=== PATIENT | male | born 1970 | race African-American/Black ===

== ENCOUNTER 2017-05-06 15:28 | Inpatient (IN) | payer OTHER ==
[2017-05-06 19:32] VITALS: BMI 20.9
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
[2017-05-06] MEDS ORDERED: MAGNESIUM HYDROX 2400MG/30ML ORAL SUSPENSION 30 ML CUP PO PRN (21:15)
[2017-05-06] MEDS ORDERED: MAG HYDROX/AL HYDROX/SIMETH 30 ML UNIT-DOSE CUP PO PRN (21:15)
[2017-05-06] MEDS ORDERED: hydrOXYzine PAMOATE 50 MG CAPSULE (FP) PO PRN (21:15)
[2017-05-06] MEDS ORDERED: MENTHOL/PHENOL 1 EACH UD MM PRN (21:15)
[2017-05-06] MEDS ORDERED: LOPERAMIDE HCL 2 MG CAPSULE PO PRN (21:15)
[2017-05-06] MEDS ORDERED: P-EPHED 60MG/TRIPROLIDI 2.5MG TABLET PO PRN (21:15)
[2017-05-06] MEDS ORDERED: ACETAMINOPHEN 325 MG TABLET (FP) PO PRN (21:15)
[2017-05-06] MEDS ORDERED: MAGNESIUM CITRATE 300 ML BOTTLE PO PRN (21:15)
[2017-05-06] MEDS ORDERED: guaiFENesin/D-METHORPHAN HB 10 ML UNIT-DOSE CUPS PO PRN (21:15)
[2017-05-06 22:32] LABS: URINE APPEARANCE CLEAR; URINE BILIRUBIN NEGATIVE (NEGATIVE); URINE BLOOD NEGATIVE (NEGATIVE); URINE COLOR DKYELLOW; URINE GLUCOSE (UA) NEGATIVE (NEGATIVE); URINE KETONE NEGATIVE (NEGATIVE); URINE LEUK ESTERASE NEGATIVE (NEGATIVE); URINE NITRITE NEGATIVE (NEGATIVE); URINE UROBILINOGEN NEGATIVE mg/dL (0.2-1.0)
[2017-05-06 22:44] LABS: URINE PROTEIN 1+ (NEGATIVE)
[2017-05-06] MEDS ORDERED: TUBERCULIN PPD 5 TU/0.1ML VIAL ID ONE (23:10)
[2017-05-06] MEDS: THIAMINE HCL 100 MG TABLET (FP) PO SCH (23:18)
[2017-05-06 23:57] LABS: CALCIUM OXALATE CRYSTALS RARE /hpf (NONE SEEN); URINE BACTERIA RARE /hpf (NONE SEEN); URINE HYALINE CAST 6 /lpf; URINE MUCUS MANY; URINE RBC 6 /hpf (0-3); URINE WBC 6 /hpf (3-5)
[2017-05-07] MEDS: PRENATAL VITAMINS W/ FOLIC ACID TABLET (FP) PO SCH (09:41)
[2017-05-07] MEDS: PANTOPRAZOLE 20 MG TABLET (FP) PO SCH (10:19)
[2017-05-07 10:56] LABS: ALBUMIN 2.9 g/dl (3.4-5.0); ANION GAP 7 (8-16); CALCIUM 8.2 mg/dL (8.5-10.1); CO2 24 mmol/L (21-32); CREATININE 0.9 mg/dL (0.7-1.3); GLUCOSE,RANDOM 71 mg/dL (74-106); SGOT/AST 17 U/L (15-37); SGPT/ALT 16 U/L (12-78)
[2017-05-07 10:59] LABS: ALK PHOS 84 U/L (45-117); BILIRUBIN,TOTAL 0.3 mg/dL (0.2-1.0); TOT PROT 7.6 g/dl (6.4-8.2)
[2017-05-07 11:09] LABS: MCH 27.9 pg (25.7-33.7); MCHC 32.6 g/dl (32.0-35.9); MEAN CELL VOLUME 85.4 fl (80-96); MEAN PLT VOLUME 9.6 fl (7.5-11.1); PLATELET COUNT 165 K/MM3 (134-434); RDW 14.1 % (11.9-15.9)
[2017-05-07 11:41] LABS: WHITE BLOOD COUNT 1.3 K/mm3 (4.0-10.0)
[2017-05-07] MEDS ORDERED: SULFAMETHOXAZOLE/TRIMETHOPRIM 800MG/160MG D.S. TABLET PO ONE (14:18)
[2017-05-07] MEDS ORDERED: PATIENT'S OWN MEDICATION (NON-FORMULARY) (Efavirenz/Emtricitab/Tenofovir 1 TAB) PO SCH (14:30)
[2017-05-07] MEDS: EMTRICITABINE 200MG/TENOFOVIR 300MG PO SCH (14:57)
[2017-05-07] MEDS: SULFAMETHOXAZOLE/TRIMETHOPRIM 800MG/160MG D.S. TABLET PO SCH (14:57)
[2017-05-07] MEDS: EFAVIRENZ 600 MG TABLET PO SCH (14:57)
[2017-05-07 17:26] LABS: PLATELET ESTIMATE ADEQUATE (NORMAL)
[2017-05-07] MEDS: THIAMINE HCL 100 MG TABLET (FP) PO SCH (21:28)
[2017-05-08] MEDS: EFAVIRENZ 600 MG TABLET PO SCH (09:37)
[2017-05-08] MEDS: SULFAMETHOXAZOLE/TRIMETHOPRIM 800MG/160MG D.S. TABLET PO SCH (09:37)
[2017-05-08] MEDS: PANTOPRAZOLE 20 MG TABLET (FP) PO SCH (09:37)
[2017-05-08] MEDS: EMTRICITABINE 200MG/TENOFOVIR 300MG PO SCH (09:37)
[2017-05-08] MEDS: PRENATAL VITAMINS W/ FOLIC ACID TABLET (FP) PO SCH (09:37)
[2017-05-08] MEDS: THIAMINE HCL 100 MG TABLET (FP) PO SCH (21:23)
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
[2017-05-09] MEDS: SULFAMETHOXAZOLE/TRIMETHOPRIM 800MG/160MG D.S. TABLET PO SCH (09:31)
[2017-05-09] MEDS: PRENATAL VITAMINS W/ FOLIC ACID TABLET (FP) PO SCH (09:31)
[2017-05-09] MEDS: PANTOPRAZOLE 20 MG TABLET (FP) PO SCH (09:31)
[2017-05-09] MEDS: EMTRICITABINE 200MG/TENOFOVIR 300MG PO SCH (09:32)
[2017-05-09] MEDS: EFAVIRENZ 600 MG TABLET PO SCH (09:32)
--- NOTE | 2017-05-09 11:31 | EKG ---
Test Reason : Blood Pressure : / mmHG Vent. Rate : 078 BPM Atrial Rate : 078 BPM P-R Int : 134 ms QRS Dur : 090 ms QT Int : 356 ms P-R-T Axes : 073 062 058 degrees QTc Int : 405 ms NORMAL SINUS RHYTHM MINIMAL VOLTAGE CRITERIA FOR LVH, MAY BE NORMAL VARIANT SEPTAL INFARCT , AGE UNDETERMINED ABNORMAL ECG NO PREVIOUS ECGS AVAILABLE Confirmed by BETSY SENA, MARCO ANTONIO ([id number]) on 05/09/2017 11:31:42 AM Referred By: Lilliam TALBOT Confirmed By:MARCO ANTONIO MEYER MD
[2017-05-09] MEDS ORDERED: AMMONIUM LACTATE 12% LOTION 225 GM BOTTLE TP PRN (20:29)
[2017-05-09] MEDS: THIAMINE HCL 100 MG TABLET (FP) PO SCH (21:23)
[2017-05-10] MEDS: PANTOPRAZOLE 20 MG TABLET (FP) PO SCH (09:32)
[2017-05-10] MEDS: EFAVIRENZ 600 MG TABLET PO SCH (09:32)
[2017-05-10] MEDS: SULFAMETHOXAZOLE/TRIMETHOPRIM 800MG/160MG D.S. TABLET PO SCH (09:32)
[2017-05-10] MEDS: EMTRICITABINE 200MG/TENOFOVIR 300MG PO SCH (09:32)
[2017-05-10] MEDS: PRENATAL VITAMINS W/ FOLIC ACID TABLET (FP) PO SCH (09:32)
[2017-05-10] MEDS: THIAMINE HCL 100 MG TABLET (FP) PO SCH (21:52)
[2017-05-10] MEDS: diphenhydrAMINE HCL 50 MG CAPSULE PO PRN (21:53)
[2017-05-11] MEDS: SULFAMETHOXAZOLE/TRIMETHOPRIM 800MG/160MG D.S. TABLET PO SCH (09:50)
[2017-05-11] MEDS: PANTOPRAZOLE 20 MG TABLET (FP) PO SCH (09:50)
[2017-05-11] MEDS: PRENATAL VITAMINS W/ FOLIC ACID TABLET (FP) PO SCH (09:51)
[2017-05-11] MEDS: EMTRICITABINE 200MG/TENOFOVIR 300MG PO SCH (10:23)
[2017-05-11] MEDS: EFAVIRENZ 600 MG TABLET PO SCH (10:24)
[2017-05-11] MEDS: THIAMINE HCL 100 MG TABLET (FP) PO SCH (21:36)
[2017-05-12] MEDS: PRENATAL VITAMINS W/ FOLIC ACID TABLET (FP) PO SCH (09:58)
[2017-05-12] MEDS: EMTRICITABINE 200MG/TENOFOVIR 300MG PO SCH (09:59)
[2017-05-12] MEDS: SULFAMETHOXAZOLE/TRIMETHOPRIM 800MG/160MG D.S. TABLET PO SCH (09:59)
[2017-05-12] MEDS: PANTOPRAZOLE 20 MG TABLET (FP) PO SCH (09:59)
[2017-05-12] MEDS: EFAVIRENZ 600 MG TABLET PO SCH (09:59)
[2017-05-12] MEDS: diphenhydrAMINE HCL 50 MG CAPSULE PO PRN (21:14)
[2017-05-12] MEDS: THIAMINE HCL 100 MG TABLET (FP) PO SCH (21:14)
[2017-05-13] MEDS: EMTRICITABINE 200MG/TENOFOVIR 300MG PO SCH (09:59)
[2017-05-13] MEDS: PRENATAL VITAMINS W/ FOLIC ACID TABLET (FP) PO SCH (09:59)
[2017-05-13] MEDS: PANTOPRAZOLE 20 MG TABLET (FP) PO SCH (09:59)
[2017-05-13] MEDS: SULFAMETHOXAZOLE/TRIMETHOPRIM 800MG/160MG D.S. TABLET PO SCH (09:59)
[2017-05-13] MEDS: EFAVIRENZ 600 MG TABLET PO SCH (10:00)
[2017-05-13] MEDS: THIAMINE HCL 100 MG TABLET (FP) PO SCH (22:09)
[2017-05-14] MEDS: PANTOPRAZOLE 20 MG TABLET (FP) PO SCH (09:59)
[2017-05-14] MEDS: PRENATAL VITAMINS W/ FOLIC ACID TABLET (FP) PO SCH (09:59)
[2017-05-14] MEDS: EFAVIRENZ 600 MG TABLET PO SCH (10:00)
[2017-05-14] MEDS: SULFAMETHOXAZOLE/TRIMETHOPRIM 800MG/160MG D.S. TABLET PO SCH (10:00)
[2017-05-14] MEDS: EMTRICITABINE 200MG/TENOFOVIR 300MG PO SCH (10:00)
[2017-05-14] MEDS: diphenhydrAMINE HCL 50 MG CAPSULE PO PRN (21:15)
[2017-05-14] MEDS: THIAMINE HCL 100 MG TABLET (FP) PO SCH (21:15)
[2017-05-14] MEDS: IBUPROFEN 400 MG TABLET (FP) PO PRN (21:16)
[2017-05-15] MEDS: IBUPROFEN 400 MG TABLET (FP) PO PRN (08:49)
[2017-05-15] MEDS: EMTRICITABINE 200MG/TENOFOVIR 300MG PO SCH (09:43)
[2017-05-15] MEDS: SULFAMETHOXAZOLE/TRIMETHOPRIM 800MG/160MG D.S. TABLET PO SCH (09:43)
[2017-05-15] MEDS: EFAVIRENZ 600 MG TABLET PO SCH (09:43)
[2017-05-15] MEDS: PRENATAL VITAMINS W/ FOLIC ACID TABLET (FP) PO SCH (09:43)
[2017-05-15] MEDS: PANTOPRAZOLE 20 MG TABLET (FP) PO SCH (09:43)
[2017-05-15] MEDS: THIAMINE HCL 100 MG TABLET (FP) PO SCH (21:59)
[2017-05-15] MEDS: diphenhydrAMINE HCL 50 MG CAPSULE PO PRN (21:59)
[2017-05-16] MEDS ORDERED: PT OWN MED DRAWER 7, Y5N ONE ×2 (08:48→14:06)
[2017-05-16] MEDS: EFAVIRENZ 600 MG TABLET PO SCH (09:56)
[2017-05-16] MEDS: EMTRICITABINE 200MG/TENOFOVIR 300MG PO SCH (09:56)
[2017-05-16] MEDS: PRENATAL VITAMINS W/ FOLIC ACID TABLET (FP) PO SCH (09:56)
[2017-05-16] MEDS: SULFAMETHOXAZOLE/TRIMETHOPRIM 800MG/160MG D.S. TABLET PO SCH (09:56)
[2017-05-16] MEDS: PANTOPRAZOLE 20 MG TABLET (FP) PO SCH (09:56)
--- NOTE | 2017-05-16 12:42 | PN ---
YUE Progress Note Note: patient has pain in the left foot,under the care of front desk monitor before has been seen by front desk monitor in the past advise to see front desk monitor after discharge xray left foot ,
[2017-05-16] MEDS: THIAMINE HCL 100 MG TABLET (FP) PO SCH (21:31)
[2017-05-16] MEDS: diphenhydrAMINE HCL 50 MG CAPSULE PO PRN (21:31)
[2017-05-16] MEDS: IBUPROFEN 400 MG TABLET (FP) PO PRN (21:32)
[2017-05-17] MEDS ORDERED: PT OWN MED DRAWER 7, Y5N ONE ×2 (10:10→10:13)
[2017-05-17] MEDS: EMTRICITABINE 200MG/TENOFOVIR 300MG PO SCH (10:10)
[2017-05-17] MEDS: PRENATAL VITAMINS W/ FOLIC ACID TABLET (FP) PO SCH (10:11)
[2017-05-17] MEDS: PANTOPRAZOLE 20 MG TABLET (FP) PO SCH (10:11)
[2017-05-17] MEDS: EFAVIRENZ 600 MG TABLET PO SCH (10:11)
[2017-05-17] MEDS: SULFAMETHOXAZOLE/TRIMETHOPRIM 800MG/160MG D.S. TABLET PO SCH (10:11)
[2017-05-17] MEDS: THIAMINE HCL 100 MG TABLET (FP) PO SCH (21:11)
[2017-05-17] MEDS: diphenhydrAMINE HCL 50 MG CAPSULE PO PRN (21:11)
[2017-05-18] MEDS: PANTOPRAZOLE 20 MG TABLET (FP) PO SCH (10:10)
[2017-05-18] MEDS: EMTRICITABINE 200MG/TENOFOVIR 300MG PO SCH (10:10)
[2017-05-18] MEDS: PRENATAL VITAMINS W/ FOLIC ACID TABLET (FP) PO SCH (10:10)
[2017-05-18] MEDS: SULFAMETHOXAZOLE/TRIMETHOPRIM 800MG/160MG D.S. TABLET PO SCH (10:10)
[2017-05-18] MEDS: EFAVIRENZ 600 MG TABLET PO SCH (10:10)
[2017-05-18] MEDS ORDERED: PT OWN MED DRAWER 7, Y5N ONE (10:11)
[2017-05-18] MEDS ORDERED: AZITHROMYCIN 600 MG TABLET PO ONE (12:05)
--- NOTE | 2017-05-18 14:32 | PN ---
Psychiatric Progress Note Vital Signs: Vital Signs Period Temp Pulse Resp BP Sys/Kelly Pulse Ox Last 24 Hr 98 F 80 18-18 126/70 Current Medications: Active Medications Generic Name Dose Route Start Last Admin Trade Name Freq PRN Reason Stop Dose Admin Acetaminophen 650 mg 05/06/17 21:15 05/14/17 10:01 Tylenol - PO 650 mg Q4H PRN Administration PAIN Al Hydroxide/Mg Hydroxide 30 ml 05/06/17 21:15 Mylanta Oral Suspension - PO Q6H PRN DYSPEPSIA Diphenhydramine HCl 50 mg 05/06/17 21:15 05/17/17 21:11 Benadryl - PO 50 mg HSMR1 PRN Administration INSOMNIA Efavirenz 600 mg 05/07/17 14:30 05/18/17 10:10 Sustiva - PO 600 mg DAILY JORGE Administration Emtricitabine/Tenofovir 1 tab 05/07/17 14:30 05/18/17 10:10 Truvada PO 1 tab DAILY JORGE Administration Eucalyptus/Menthol/Phenol/Sorbitol 1 each 05/06/17 21:15 Cepastat Lozenge - MM Q4H PRN SORE THROAT Guaifenesin 10 ml 05/06/17 21:15 Robitussin Dm - PO Q6H PRN COUGH Hydroxyzine Pamoate 50 mg 05/06/17 21:15 Vistaril - PO Q4H PRN AGITATION Ibuprofen 600 mg 05/18/17 12:07 Motrin - PO Q6H PRN PAIN Loperamide HCl 4 mg 05/06/17 21:15 Imodium - PO Q6H PRN DIARRHEA Magnesium Citrate 300 ml 05/06/17 21:15 Citroma - PO Q48H PRN CONSTIPATION Magnesium Hydroxide 30 ml 05/06/17 21:15 Milk Of Magnesia - PO DAILY PRN CONSTIPATION Pantoprazole Sodium 20 mg 05/07/17 10:00 05/18/17 10:10 Protonix - PO 20 mg DAILY JORGE Administration Multivit/Folic Acid/Iron 1 tab 05/07/17 10:00 05/18/17 10:10 Vitamins (Sjr) - PO 1 tab DAILY JORGE Administration Pseudoephedrine/Triprolidine 1 combo 05/06/17 21:15 Actifed - PO TID PRN NASAL CONGESTION Thiamine HCl 100 mg 05/06/17 22:00 08/01/17 21:11 Vitamin B1 - PO 100 mg HS JORGE Administration Trimethoprim/Sulfamethoxazole 1 each 05/07/17 14:30 05/18/17 10:10 Bactrim Ds - PO 1 each DAILY JORGE Administration Mental Status Exam - Mental Status Exam Alert and Oriented to: Time Insight/Judgement: Fair Psychiatric Treatment Plan - Problem List (1) Alcohol dependence Current Visit: No (2) Nicotine dependence Current Visit: No Comment: Seroquel 100mg po qhs (3) Acquired immune deficiency syndrome (AIDS) Current Visit: Yes Comment: PT. PRESCRIBED GENVOYA BUT REPORTS HE STOPPED TAKING THE MEDICATION 1 MONTH AGO. HE DID NOT BRING ANY REFILLS WITH HIM. HE WAS MADE AWARE THAT GENOVYA IS NON-FORMULARY AND HE WAS EXPECTED TO BRING THEM WITH HIM ON ADMISSION. HE WAS ADVISED TO OBTAIN A REFILL AND COME BACK THE NEXT DAY WITH HIS MEDICATION BUT HE REFUSED AND INSISTED TO WANTED TO BE ADMITTED IMMEDIATLEY. HE WAS EDUCATED ON THE IMPORTANCE OF ADHERING TO ANTIRETROVIRAL MEDICATION; PT. VERBALIZED UNDERSTANDING. (4) GERD (gastroesophageal reflux disease) Current Visit: Yes
[2017-05-18] MEDS: THIAMINE HCL 100 MG TABLET (FP) PO SCH (21:20)
[2017-05-18] MEDS: diphenhydrAMINE HCL 50 MG CAPSULE PO PRN (21:20)
[2017-05-18] MEDS: IBUPROFEN 600 MG TABLET (FP) PO PRN (21:21)
[2017-05-19] MEDS: PRENATAL VITAMINS W/ FOLIC ACID TABLET (FP) PO SCH (10:04)
[2017-05-19] MEDS: PANTOPRAZOLE 20 MG TABLET (FP) PO SCH (10:04)
[2017-05-19] MEDS: SULFAMETHOXAZOLE/TRIMETHOPRIM 800MG/160MG D.S. TABLET PO SCH (10:04)
[2017-05-19] MEDS: EMTRICITABINE 200MG/TENOFOVIR 300MG PO SCH (10:06)
--- NOTE | 2017-05-19 10:22 | PN ---
Psychiatric Progress Note Vital Signs: Vital Signs Period Temp Pulse Resp BP Sys/Kelly Pulse Ox Last 24 Hr 97.6 F 77 18-18 120/72 Date of Session: 05/19/17 Chief Complaint:: Discharge Note HPI: Patient addressing Alcohol Dependence comorbid with Nicotine Dependence ROS: AIDS, GERD Current Medications: Active Medications Generic Name Dose Route Start Last Admin Trade Name Freq PRN Reason Stop Dose Admin Acetaminophen 650 mg 05/06/17 21:15 05/14/17 10:01 Tylenol - PO 650 mg Q4H PRN Administration PAIN Al Hydroxide/Mg Hydroxide 30 ml 05/06/17 21:15 Mylanta Oral Suspension - PO Q6H PRN DYSPEPSIA Diphenhydramine HCl 50 mg 05/06/17 21:15 05/18/17 21:20 Benadryl - PO 50 mg HSMR1 PRN Administration INSOMNIA Efavirenz 600 mg 05/07/17 14:30 05/18/17 10:10 Sustiva - PO 600 mg DAILY JORGE Administration Emtricitabine/Tenofovir 1 tab 05/07/17 14:30 05/19/17 10:06 Truvada PO 1 tab DAILY JORGE Administration Eucalyptus/Menthol/Phenol/Sorbitol 1 each 05/06/17 21:15 Cepastat Lozenge - MM Q4H PRN SORE THROAT Guaifenesin 10 ml 05/06/17 21:15 Robitussin Dm - PO Q6H PRN COUGH Hydroxyzine Pamoate 50 mg 05/06/17 21:15 Vistaril - PO Q4H PRN AGITATION Ibuprofen 600 mg 05/18/17 12:07 05/18/17 21:21 Motrin - PO 600 mg Q6H PRN Administration PAIN Loperamide HCl 4 mg 05/06/17 21:15 Imodium - PO Q6H PRN DIARRHEA Magnesium Citrate 300 ml 05/06/17 21:15 Citroma - PO Q48H PRN CONSTIPATION Magnesium Hydroxide 30 ml 05/06/17 21:15 Milk Of Magnesia - PO DAILY PRN CONSTIPATION Pantoprazole Sodium 20 mg 05/07/17 10:00 05/19/17 10:04 Protonix - PO 20 mg DAILY JORGE Administration Multivit/Folic Acid/Iron 1 tab 05/07/17 10:00 05/19/17 10:04 Vitamins (Sjr) - PO 1 tab DAILY JORGE Administration Pseudoephedrine/Triprolidine 1 combo 05/06/17 21:15 Actifed - PO TID PRN NASAL CONGESTION Thiamine HCl 100 mg 05/06/17 22:00 05/18/17 21:20 Vitamin B1 - PO 100 mg HS JORGE Administration Trimethoprim/Sulfamethoxazole 1 each 05/07/17 14:30 05/19/17 10:04 Bactrim Ds - PO 1 each DAILY JORGE Administration Current Side Effect: No Lab tests ordered: Yes Lab tests reviewed: Yes Provider note:: Patient will complete this program on 05/20/17. He has met his treatment goals and will continue to address his issues in outpatient treatment at [facility]. 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 He is stable for discharge on 05/20/17 Total face to face time:: 35 Mental Status Exam - Mental Status Exam Alert and Oriented to: Time, Place, Person Cognitive Function: Fair Patient Appearance: Well Groomed Mood: Hopeful, Euthymic Affect: Appropriate Patient Behavior: Cooperative Speech Pattern: Clear Voice Loudness: Normal Thought Process: Intact, Goal Oriented Thought Disorder: Not Present Hallucinations: Denies Suicidal Ideation: Denies Homicidal Ideation: Denies Insight/Judgement: Fair Sleep: Fair Appetite: Good Muscle strength/Tone: Normal Gait/Station: Normal Psychiatric Treatment Plan - Problem List (1) Alcohol dependence Current Visit: No (2) Nicotine dependence Current Visit: No Comment: Seroquel 100mg po qhs (3) Acquired immune deficiency syndrome (AIDS) Current Visit: Yes Comment: PT. PRESCRIBED GENVOYA BUT REPORTS HE STOPPED TAKING THE MEDICATION 1 MONTH AGO. HE DID NOT BRING ANY REFILLS WITH HIM. HE WAS MADE AWARE THAT GENOVYA IS NON-FORMULARY AND HE WAS EXPECTED TO BRING THEM WITH HIM ON ADMISSION. HE WAS ADVISED TO OBTAIN A REFILL AND COME BACK THE NEXT DAY WITH HIS MEDICATION BUT HE REFUSED AND INSISTED TO WANTED TO BE ADMITTED IMMEDIATLEY. HE WAS EDUCATED ON THE IMPORTANCE OF ADHERING TO ANTIRETROVIRAL MEDICATION; PT. VERBALIZED UNDERSTANDING. (4) GERD (gastroesophageal reflux disease) Current Visit: Yes Initial treatment plan: Patient will be discharged tomorrow and referred to [facility] for outpatient treatment
[2017-05-19] MEDS: EFAVIRENZ 600 MG TABLET PO SCH (10:30)
[2017-05-19] MEDS: THIAMINE HCL 100 MG TABLET (FP) PO SCH (21:04)
[2017-05-19] MEDS: IBUPROFEN 600 MG TABLET (FP) PO PRN (21:05)
[2017-05-20 06:23] VITALS: BP 118/75; PULSE 78; TEMP 97.9
== END 2017-05-20 07:25 | disposition home or self-care (01) | DRG 895 ==
LOC: YASAS 15:28 → Y3W 19:46
PROVIDERS: ADMIT Psychiatry & Neurology Psychiatry; ATTEND Psychiatry & Neurology Psychiatry
PROC: HZ42ZZZ Group Counseling for Substance Abuse Treatment, Cognitive-Behavioral (ICD-10-PCS; principal; 2017-05-06)
DX: F10.20 Alcohol dependence, uncomplicated (principal); B20 Human immunodeficiency virus [HIV] disease; F17.210 Nicotine dependence, cigarettes, uncomplicated; K21.9 Gastro-esophageal reflux disease without esophagitis
CPT/HCPCS: 36415; 73630-TC-LT; 80053; 81003; 81015; 85027; 86593; 93005; 93010

== ENCOUNTER 2017-10-03 08:44 | Inpatient (IN) | payer OTHER ==
[2017-10-03 09:09] VITALS: BMI 22.3
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
[2017-10-03] MEDS ORDERED: IBUPROFEN 400 MG TABLET (FP) PO PRN (13:41)
[2017-10-03] MEDS ORDERED: MAG HYDROX/AL HYDROX/SIMETH 30 ML UNIT-DOSE CUP PO PRN (13:41)
[2017-10-03] MEDS ORDERED: guaiFENesin/D-METHORPHAN HB 10 ML UNIT-DOSE CUPS PO PRN (13:41)
[2017-10-03] MEDS ORDERED: MAGNESIUM CITRATE 300 ML BOTTLE PO PRN (13:41)
[2017-10-03] MEDS ORDERED: NICOTINE POLACRILEX 2 MG GUM BUC PRN (13:41)
[2017-10-03] MEDS ORDERED: ACETAMINOPHEN 325 MG TABLET (FP) PO PRN (13:41)
[2017-10-03] MEDS ORDERED: MENTHOL/PHENOL 1 EACH UD MM PRN (13:41)
[2017-10-03] MEDS ORDERED: MAGNESIUM HYDROX 2400MG/30ML ORAL SUSPENSION 30 ML CUP PO PRN (13:41)
[2017-10-03] MEDS ORDERED: chlordiazePOXIDE HCL 25 MG CAPSULE PO PRN (13:41)
[2017-10-03] MEDS ORDERED: P-EPHED 60MG/TRIPROLIDI 2.5MG TABLET PO PRN (13:41)
[2017-10-03] MEDS ORDERED: LOPERAMIDE HCL 2 MG CAPSULE PO PRN (13:41)
[2017-10-03] MEDS ORDERED: chlordiazePOXIDE HCL 25 MG CAPSULE PO ONE (13:53)
[2017-10-03] MEDS: NICOTINE 14 MG/24 HOURS TOPICAL PATCH TD SCH (14:50)
--- NOTE | 2017-10-03 15:10 | CONSULT ---
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 Substance Abuse History: Discussed in this session.Patient admits to daily use of cocaine and alcohol.Refer to current [facility] report for details : Smoking history: Current every day smoker. Have you smoked in the past 12 months: Yes. Aproximately how many cigarettes per day: 4. Cigars Per Day: 0. Hx Chewing Tobacco Use: No. Initiated information on smoking cessation: Yes. - Substance & Tx. History. Hx Alcohol Use: Yes. Hx Substance Use: Yes. Substance Use Type : Alcohol, Cocaine. Hx Substance Use Treatment: Yes (multiple admissions to [facility]). - Substances Abused. Alcohol. Route: Oral. Frequency: Daily. Amount used: beer(12 pk-16oz cans)/syd(1/2 pint). Age of first use: 11. Date of Last Use: 10/03/17. Cocaine. Route: Smoking. Frequency: Daily. Amount used: $40. Age of first use: 17. Date of Last Use: 09/30/17 Medical History: HIV infection since 2006,GERD,and a past history of orthosurgery (fracture of right wrist) in 2003. Psychiatric History: Patient denies. Physical/Sexual Abuse/Trauma History: No reported history of abuse. Additional Comment: Urine Drug Screen Results: JASMIN-Cocaine.Noted. Mental Status Exam - Mental Status Exam Alert and Oriented to: Time, Place, Person Cognitive Function: Good Patient Appearance: Well Groomed Mood: Hopeful, Euthymic Affect: Appropriate, Normal Range Patient Behavior: Fatigued, Appropriate (friedly on approach), Cooperative Speech Pattern: Clear, Appropriate Voice Loudness: Normal Thought Process: Intact, Goal Oriented Thought Disorder: Not Present Hallucinations: Denies Suicidal Ideation: Denies Homicidal Ideation: Denies Insight/Judgement: Poor Sleep: Poorly, Difficulty falling asleep Appetite: Good Muscle strength/Tone: Normal Gait/Station: Normal Psychiatric Findings - Problem List ([place] 1, 2,3) (1) Alcohol dependence with uncomplicated withdrawal Current Visit: Yes Status: Acute (2) Cocaine dependence, uncomplicated Current Visit: Yes Status: Acute (3) Nicotine dependence Current Visit: Yes Status: Acute Qualifiers: Nicotine product type: cigarettes Substance use status: in withdrawal Qualified Code(s): F17.213 - Nicotine dependence, cigarettes, with withdrawal (4) Substance induced mood disorder Current Visit: Yes Status: Acute (5) Insomnia Current Visit: Yes Status: Acute - Initial Treatment Plan Initial Treatment Plan: Psychoeducation.Sleep hygiene discussed in session.Detoxification in effect.Ambien 10 mg po hs prn.Patient is informed of potential for parasomnias.He consents )verbally) to follow this plan of care.Observation.
[2017-10-03] MEDS ORDERED: chlordiazePOXIDE HCL 25 MG CAPSULE PO SCH (17:00)
[2017-10-03] MEDS: chlordiazePOXIDE HCL 25 MG CAPSULE PO SCH ×2 (17:15→22:06)
[2017-10-03] MEDS: ZOLPIDEM TARTRATE 10 MG TABLET (PARK CARE ONLY) PO PRN (22:06)
[2017-10-03] MEDS: THIAMINE HCL 100 MG TABLET (FP) PO SCH (22:06)
[2017-10-03] MEDS: ARTIFICIAL TEARS (POLYVINYL ALCOHOL 1.4%) OPTH DROPS OU SCH (22:35)
[2017-10-03 23:32] LABS: URINE APPEARANCE SLCLOUDY; URINE BILIRUBIN NEGATIVE (NEGATIVE); URINE BLOOD NEGATIVE (NEGATIVE); URINE COLOR AMBER; URINE GLUCOSE (UA) NEGATIVE (NEGATIVE); URINE KETONE TRACE (NEGATIVE); URINE LEUK ESTERASE NEGATIVE (NEGATIVE); URINE NITRITE NEGATIVE (NEGATIVE); URINE UROBILINOGEN 4.0 E.U/dl mg/dL (0.2-1.0)
[2017-10-03 23:37] LABS: URINE PROTEIN 1+ (NEGATIVE)
[2017-10-03 23:39] LABS: URINE HYALINE CAST 11 /lpf; URINE MUCUS MANY; URINE RBC 1 /hpf (0-3); URINE WBC 7 /hpf (3-5)
--- NOTE | 2017-10-04 01:55 | EKG ---
Test Reason : Blood Pressure : / mmHG Vent. Rate : 073 BPM Atrial Rate : 073 BPM P-R Int : 138 ms QRS Dur : 090 ms QT Int : 368 ms P-R-T Axes : 061 042 048 degrees QTc Int : 405 ms NORMAL SINUS RHYTHM NORMAL ECG WHEN COMPARED WITH ECG OF 06-MAY-2017 22:04, CRITERIA FOR SEPTAL INFARCT ARE NO LONGER PRESENT Confirmed by LUIS HEAD MD ([id number]) on 10/04/2017 1:54:56 AM Referred By: Confirmed By:LUIS HEAD MD
[2017-10-04] MEDS: chlordiazePOXIDE HCL 25 MG CAPSULE PO SCH ×4 (05:32→22:02)
[2017-10-04 09:48] LABS: URINE LEUK ESTERASE Negative (NEGATIVE)
[2017-10-04 10:05] LABS: MCH 26.6 pg (25.7-33.7); MCHC 30.9 g/dl (32.0-35.9); MEAN CELL VOLUME 86.3 fl (80-96); MEAN PLT VOLUME 10.5 fl (7.5-11.1); PLATELET COUNT 204 K/MM3 (134-434)
[2017-10-04] MEDS: PRENATAL VITAMINS W/ FOLIC ACID TABLET (FP) PO SCH (10:05)
[2017-10-04] MEDS: ARTIFICIAL TEARS (POLYVINYL ALCOHOL 1.4%) OPTH DROPS OU SCH ×4 (10:05→22:02)
[2017-10-04] MEDS: NICOTINE 14 MG/24 HOURS TOPICAL PATCH TD SCH (10:05)
--- NOTE | 2017-10-04 10:21 | PN ---
[facility] CIWA - CIWA Score Nausea/Vomitin-No Nausea/No Vomiting Muscle Tremors: 4-Moderate,w/Arms Extend Anxiety: 4-Mod. Anxious/Guarded Agitation: 4-Moderately Restless Paroxysmal Sweats: 1-Minimal Palms Moist Orientation: 0-Oriented Tacttile Disturbances: 3-Moderate Itch/Numb/Burn Auditory Disturbances: 0-None Visual Disturbances: 0-None Headache: 0-None Present CIWA-Ar Total Score: 16 BHS Progress Note (SOAP) Subjective: ANXIETY,SWEATS,TREMORS,NAUSEA/VOMITING,NASAL CONGESTION. Objective: 10/04/17 10:22 Vital Signs Temperature 97.2 F L 10/04/17 08:58 Pulse Rate 80 10/04/17 08:58 Respiratory Rate 18 10/04/17 08:58 Blood Pressure 108/70 10/04/17 08:58 O2 Sat by Pulse Oximetry (%) Laboratory Last Values Urine Color Shannan 10/03/17 23:10 Urine Appearance Slcloudy 10/03/17 23:10 Urine pH 5.0 (5.0-8.0) 10/03/17 23:10 Ur Specific [place] 1.030 (1.001-1.035) 10/03/17 23:10 Urine Protein 1+ (NEGATIVE) H 10/03/17 23:10 Urine Glucose (UA) Negative (NEGATIVE) 10/03/17 23:10 Urine Ketones Trace (NEGATIVE) H 10/03/17 23:10 Urine Blood Negative (NEGATIVE) 10/03/17 23:10 Urine Nitrite Negative (NEGATIVE) 10/03/17 23:10 Urine Bilirubin Negative (NEGATIVE) 10/03/17 23:10 Urine Urobilinogen 4.0 e.u/dl mg/dL (0.2-1.0) 10/03/17 23:10 Ur Leukocyte Esterase Negative (NEGATIVE) 10/03/17 23:10 Urine WBC (Auto) 7 /hpf (3-5) 10/03/17 23:10 Urine RBC (Auto) 1 /hpf (0-3) 10/03/17 23:10 Ur Epithelial Cells Rare /HPF (FEW) 10/03/17 23:10 Hyaline Casts 11 /lpf 10/03/17 23:10 Urine Mucus Many 10/03/17 23:10 OTHER LABS PENDING. Assessment: 10/04/17 10:23 WITHDRAWAL SX Plan: CONTINUE DETOX ZOFRAN DIRECTED.
[2017-10-04] MEDS ORDERED: ONDANSETRON *ODT* 4 MG TABLET SL PRN (10:25)
[2017-10-04] MEDS ORDERED: PATIENT'S OWN MEDICATION (NON-FORMULARY) (Efavirenz/Emtricitab/Tenofovir 1 TAB) PO SCH (10:30)
[2017-10-04 10:55] LABS: ALK PHOS 80 U/L (45-117); ANION GAP 6 (8-16); BILIRUBIN,TOTAL 0.4 mg/dL (0.2-1.0); CALCIUM 8.6 mg/dL (8.5-10.1); CO2 28 mmol/L (21-32); CREATININE 0.9 mg/dL (0.7-1.3); GLUCOSE,RANDOM 94 mg/dL (74-106); SGOT/AST 13 U/L (15-37); SGPT/ALT 18 U/L (12-78)
[2017-10-04 11:09] LABS: WHITE BLOOD COUNT 1.6 K/mm3 (4.0-10.0)
[2017-10-04] MEDS ORDERED: EFAVIRENZ 600 MG TABLET PO ONE (11:15)
[2017-10-04] MEDS ORDERED: EMTRICITABINE 200MG/TENOFOVIR 300MG PO ONE (11:15)
[2017-10-04] MEDS: SULFAMETHOXAZOLE/TRIMETHOPRIM 800MG/160MG D.S. TABLET PO SCH (14:45)
[2017-10-04] MEDS: ELVITEG/COB/EMTRI/TENOF (GENVOYA) TABLET (NF) PO SCH (15:15)
[2017-10-04] MEDS ORDERED: chlordiazePOXIDE HCL 25 MG CAPSULE PO SCH (17:00)
[2017-10-04] MEDS: THIAMINE HCL 100 MG TABLET (FP) PO SCH (22:02)
[2017-10-04] MEDS: ZOLPIDEM TARTRATE 10 MG TABLET (PARK CARE ONLY) PO PRN (22:02)
[2017-10-05] MEDS: chlordiazePOXIDE HCL 25 MG CAPSULE PO SCH ×2 (06:06→10:03)
[2017-10-05] MEDS: ELVITEG/COB/EMTRI/TENOF (GENVOYA) TABLET (NF) PO SCH (07:05)
[2017-10-05] MEDS ORDERED: EFAVIRENZ 600 MG TABLET PO SCH (10:00)
[2017-10-05] MEDS ORDERED: EMTRICITABINE 200MG/TENOFOVIR 300MG PO SCH (10:00)
[2017-10-05] MEDS: NICOTINE 14 MG/24 HOURS TOPICAL PATCH TD SCH (10:03)
[2017-10-05] MEDS: ARTIFICIAL TEARS (POLYVINYL ALCOHOL 1.4%) OPTH DROPS OU SCH ×4 (10:03→22:06)
[2017-10-05] MEDS: SULFAMETHOXAZOLE/TRIMETHOPRIM 800MG/160MG D.S. TABLET PO SCH (10:03)
[2017-10-05] MEDS: PRENATAL VITAMINS W/ FOLIC ACID TABLET (FP) PO SCH (10:03)
--- NOTE | 2017-10-05 10:21 | PN ---
[facility] CIWA - CIWA Score Nausea/Vomitin-No Nausea/No Vomiting Muscle Tremors: 4-Moderate,w/Arms Extend Anxiety: 4-Mod. Anxious/Guarded Agitation: 4-Moderately Restless Paroxysmal Sweats: 1-Minimal Palms Moist Orientation: 0-Oriented Tacttile Disturbances: 3-Moderate Itch/Numb/Burn Auditory Disturbances: 0-None Visual Disturbances: 0-None Headache: 0-None Present CIWA-Ar Total Score: 16 BHS Progress Note (SOAP) Subjective: ANXIETY,SWEATS,TREMORS,INTERMITTENT SLEEP. Objective: 10/05/17 10:18 Vital Signs Temperature 97.5 F L 10/05/17 09:03 Pulse Rate 94 H 10/05/17 09:03 Respiratory Rate 20 10/05/17 09:03 Blood Pressure 111/73 10/05/17 09:03 O2 Sat by Pulse Oximetry (%) Laboratory Last Values WBC 1.6 K/mm3 (4.0-10.0) L* 10/04/17 05:50 RBC 4.35 M/mm3 (4.00-5.60) 10/04/17 05:50 Hgb 11.6 GM/dL (11.7-16.9) L 10/04/17 05:50 Hct 37.5 % (35.4-49) 10/04/17 05:50 MCV 86.3 fl (80-96) 10/04/17 05:50 MCH 26.6 pg (25.7-33.7) 10/04/17 05:50 MCHC 30.9 g/dl (32.0-35.9) L 10/04/17 05:50 RDW 15.0 % (11.9-15.9) 10/04/17 05:50 Plt Count 204 K/MM3 (134-434) D 10/04/17 05:50 MPV 10.5 fl (7.5-11.1) 10/04/17 05:50 Sodium 139 mmol/L (136-145) 10/04/17 05:50 Potassium 4.6 mmol/L (3.5-5.1) D 10/04/17 05:50 Chloride 105 mmol/L (98-107) 10/04/17 05:50 Carbon Dioxide 28 mmol/L (21-32) 10/04/17 05:50 Anion Gap 6 (8-16) L 10/04/17 05:50 BUN 11 mg/dL (7-18) D 10/04/17 05:50 Creatinine 0.9 mg/dL (0.7-1.3) 10/04/17 05:50 Creat Clearance w eGFR > 60 (>60) 10/04/17 05:50 Random Glucose 94 mg/dL (74-106) D 10/04/17 05:50 Calcium 8.6 mg/dL (8.5-10.1) 10/04/17 05:50 Total Bilirubin 0.4 mg/dL (0.2-1.0) D 10/04/17 05:50 AST 13 U/L (15-37) L D 10/04/17 05:50 ALT 18 U/L (12-78) 10/04/17 05:50 Alkaline Phosphatase 80 U/L (45-117) 10/04/17 05:50 Total Protein 8.0 g/dl (6.4-8.2) 10/04/17 05:50 Albumin 3.0 g/dl (3.4-5.0) L 10/04/17 05:50 Urine Color Shannan 10/03/17 23:10 Urine Appearance Slcloudy 10/03/17 23:10 Urine pH 5.0 (5.0-8.0) 10/03/17 23:10 Ur Specific [place] 1.030 (1.001-1.035) 10/03/17 23:10 Urine Protein 1+ (NEGATIVE) H 10/03/17 23:10 Urine Glucose (UA) Negative (NEGATIVE) 10/03/17 23:10 Urine Ketones Trace (NEGATIVE) H 10/03/17 23:10 Urine Blood Negative (NEGATIVE) 10/03/17 23:10 Urine Nitrite Negative (NEGATIVE) 10/03/17 23:10 Urine Bilirubin Negative (NEGATIVE) 10/03/17 23:10 Urine Urobilinogen 4.0 e.u/dl mg/dL (0.2-1.0) 10/03/17 23:10 Ur Leukocyte Esterase Negative (NEGATIVE) 10/03/17 23:10 Urine WBC (Auto) 7 /hpf (3-5) 10/03/17 23:10 Urine RBC (Auto) 1 /hpf (0-3) 10/03/17 23:10 Ur Epithelial Cells Rare /HPF (FEW) 10/03/17 23:10 Hyaline Casts 11 /lpf 10/03/17 23:10 Urine Mucus Many 10/03/17 23:10 RPR Titer Nonreactive (NONREACTIVE) 10/04/17 05:50 Assessment: 10/05/17 10:20 WITHDRAWAL SX Plan: CONTINUE DETOX INCREASE PO FLUIDS
[2017-10-05] MEDS ORDERED: chlordiazePOXIDE 5 MG CAPSULE PO SCH (17:00)
[2017-10-05] MEDS: chlordiazePOXIDE 5 MG CAPSULE PO SCH ×2 (17:22→22:06)
[2017-10-05] MEDS: THIAMINE HCL 100 MG TABLET (FP) PO SCH (22:06)
[2017-10-05] MEDS: ZOLPIDEM TARTRATE 10 MG TABLET (PARK CARE ONLY) PO PRN (22:07)
[2017-10-06] MEDS: chlordiazePOXIDE 5 MG CAPSULE PO SCH ×2 (05:29→10:26)
[2017-10-06] MEDS: ELVITEG/COB/EMTRI/TENOF (GENVOYA) TABLET (NF) PO SCH (08:06)
[2017-10-06] MEDS: ARTIFICIAL TEARS (POLYVINYL ALCOHOL 1.4%) OPTH DROPS OU SCH ×4 (10:26→22:05)
[2017-10-06] MEDS: SULFAMETHOXAZOLE/TRIMETHOPRIM 800MG/160MG D.S. TABLET PO SCH (10:26)
[2017-10-06] MEDS: NICOTINE 14 MG/24 HOURS TOPICAL PATCH TD SCH (10:27)
[2017-10-06] MEDS: PRENATAL VITAMINS W/ FOLIC ACID TABLET (FP) PO SCH (10:27)
[2017-10-06] MEDS ORDERED: RANITIDINE HCL 150 MG TABLET (FP) PO SCH (10:30)
--- NOTE | 2017-10-06 10:35 | PN ---
S Progress Note (SOAP) Subjective: Anxious, nausea, stomach ache; patient reports h/o GERD stating he usually takes nexium or prilosec and is requesting medication for GERD. He voiced concerns about returning to his [facility] apartment due to others using illicit drugs so he is requesting terminal [facility] drug rehab. As per patient, his counselor is trying to get him into [facility] or at another rehab [facility]. Patient encouraged to speak with his caser at [facility] in transferring him to a safer apartment as he is afraid of relapsing. As per patient, he was drug free for one year. Objective: 10/06/17 10:35 Last Vital Signs Temp Pulse Resp BP Pulse Ox 96.1 F L 87 18 115/72 10/06/17 09:11 10/06/17 09:11 10/06/17 09:11 10/06/17 09:11 Laboratory Tests 10/03/17 10/04/17 10/04/17 23:10 05:50 05:50 WBC 1.6 L* RBC 4.35 Hgb 11.6 L Hct 37.5 MCV 86.3 MCH 26.6 MCHC 30.9 L RDW 15.0 Plt Count 204 D MPV 10.5 Sodium 139 Potassium 4.6 D Chloride 105 Carbon Dioxide 28 Anion Gap 6 L BUN 11 D Creatinine 0.9 Creat Clearance w eGFR > 60 Random Glucose 94 D Calcium 8.6 Total Bilirubin 0.4 D AST 13 L D ALT 18 Alkaline Phosphatase 80 Total Protein 8.0 Albumin 3.0 L Urine Color Shannan Urine Appearance Slcloudy Urine pH 5.0 Ur Specific [place] 1.030 Urine Protein 1+ H Urine Glucose (UA) Negative Urine Ketones Trace H Urine Blood Negative Urine Nitrite Negative Urine Bilirubin Negative Urine Urobilinogen 4.0 e.u/dl Ur Leukocyte Esterase Negative Urine WBC (Auto) 7 Urine RBC (Auto) 1 Ur Epithelial Cells Rare Hyaline Casts 11 Urine Mucus Many RPR Titer 10/04/17 05:50 WBC RBC Hgb Hct MCV MCH MCHC RDW Plt Count MPV Sodium Potassium Chloride Carbon Dioxide Anion Gap BUN Creatinine Creat Clearance w eGFR Random Glucose Calcium Total Bilirubin AST ALT Alkaline Phosphatase Total Protein Albumin Urine Color Urine Appearance Urine pH Ur Specific [place] Urine Protein Urine Glucose (UA) Urine Ketones Urine Blood Urine Nitrite Urine Bilirubin Urine Urobilinogen Ur Leukocyte Esterase Urine WBC (Auto) Urine RBC (Auto) Ur Epithelial Cells Hyaline Casts Urine Mucus RPR Titer Nonreactive Labs noted: wbc 1.6, UA: 1+ protein/abnormal Assessment: 10/06/17 10:36 Withdrawal symptoms Noted with neutropenia and abnormal UA Plan: Continue detox GERD: zantac 150mg PO daily, first dose now, avoid spicy, fried, greasy, fatty food; avoid laying flat for 3-4 hours post meal Neutropenia: most likely due to HIV, asymptomatic for acute infection, encouraged frequent hand washing with soap and water, follow up with PCP for monitoring Abnormal UA: encouraged to drink lots of water, repeat UA
[2017-10-06] MEDS ORDERED: RANITIDINE HCL 150 MG TABLET (FP) PO ONE (10:45)
[2017-10-06] MEDS ORDERED: chlordiazePOXIDE HCL 10 MG CAPSULE PO SCH (17:00)
[2017-10-06] MEDS: chlordiazePOXIDE HCL 10 MG CAPSULE PO SCH ×2 (17:53→22:05)
[2017-10-06] MEDS: THIAMINE HCL 100 MG TABLET (FP) PO SCH (22:05)
[2017-10-07] MEDS: chlordiazePOXIDE HCL 10 MG CAPSULE PO SCH (05:29)
[2017-10-07] MEDS: ELVITEG/COB/EMTRI/TENOF (GENVOYA) TABLET (NF) PO SCH (08:04)
[2017-10-07 09:25] VITALS: BP 110/70; PULSE 93; TEMP 96.8
[2017-10-07] MEDS ORDERED: RANITIDINE HCL 150 MG TABLET (FP) PO SCH (10:00)
--- NOTE | 2017-10-07 12:07 | DS ---
[facility] Detox Discharge Summary Admission Date: 10/03/17 Discharge Date: 10/07/17 - History Present History: Alcohol Dependence, Cocaine Dependence Pertinent Past History: GERD HIV - Physical Exam Results Vital Signs: Vital Signs Temperature 96.8 F L 10/07/17 09:20 Pulse Rate 93 H 10/07/17 09:20 Respiratory Rate 20 10/07/17 09:20 Blood Pressure 110/70 10/07/17 09:20 O2 Sat by Pulse Oximetry (%) Pertinent Admission Physical Exam Findings: Withdrawal symptoms Laboratory Tests 10/03/17 10/04/17 10/04/17 23:10 05:50 05:50 WBC 1.6 L* RBC 4.35 Hgb 11.6 L Hct 37.5 MCV 86.3 MCH 26.6 MCHC 30.9 L RDW 15.0 Plt Count 204 D MPV 10.5 Sodium 139 Potassium 4.6 D Chloride 105 Carbon Dioxide 28 Anion Gap 6 L BUN 11 D Creatinine 0.9 Creat Clearance w eGFR > 60 Random Glucose 94 D Calcium 8.6 Total Bilirubin 0.4 D AST 13 L D ALT 18 Alkaline Phosphatase 80 Total Protein 8.0 Albumin 3.0 L Urine Color Shannan Urine Appearance Slcloudy Urine pH 5.0 Ur Specific [place] 1.030 Urine Protein 1+ H Urine Glucose (UA) Negative Urine Ketones Trace H Urine Blood Negative Urine Nitrite Negative Urine Bilirubin Negative Urine Urobilinogen 4.0 e.u/dl Ur Leukocyte Esterase Negative Urine WBC (Auto) 7 Urine RBC (Auto) 1 Ur Epithelial Cells Rare Hyaline Casts 11 Urine Mucus Many RPR Titer 10/04/17 05:50 WBC RBC Hgb Hct MCV MCH MCHC RDW Plt Count MPV Sodium Potassium Chloride Carbon Dioxide Anion Gap BUN Creatinine Creat Clearance w eGFR Random Glucose Calcium Total Bilirubin AST ALT Alkaline Phosphatase Total Protein Albumin Urine Color Urine Appearance Urine pH Ur Specific [place] Urine Protein Urine Glucose (UA) Urine Ketones Urine Blood Urine Nitrite Urine Bilirubin Urine Urobilinogen Ur Leukocyte Esterase Urine WBC (Auto) Urine RBC (Auto) Ur Epithelial Cells Hyaline Casts Urine Mucus RPR Titer Nonreactive Labs noted - Treatment Hospital Course: Detox Protocol Followed, Detoxed Safely, Responded well, Discharged Condition Good - Medication Discharge Medications: Ambulatory Orders Omeprazole Magnesium [Prilosec (OTC)] 20 mg PO DAILY 03/31/13 Sulfamethoxazole/Trimethoprim [Bactrim DS -] 1 each PO ONCE #14 tablet 05/20/17 Elviteg/Cob/Emtri/Tenof Alafen [Genvoya (Non-Formulary)] 1 each PO DAILY #30 tablet 10/07/17 Multivitamins [Multivit ([facility] Formulary)] 1 tab PO DAILY #30 tab 10/07/17 Sulfamethoxazole/Trimethoprim [Bactrim DS -] 1 each PO DAILY #14 tablet - Diagnosis (1) Alcohol dependence with uncomplicated withdrawal Status: Acute (2) Cocaine dependence, uncomplicated Status: Chronic (3) Insomnia Status: Acute (4) Nicotine dependence Status: Chronic Qualifiers: Nicotine product type: cigarettes Substance use status: in withdrawal Qualified Code(s): F17.213 - Nicotine dependence, cigarettes, with withdrawal (5) Acquired immune deficiency syndrome (AIDS) Status: Chronic (6) Depression Status: Chronic Qualifiers: Depression Type: unspecified Qualified Code(s): F32.9 - Major depressive disorder, single episode, unspecified (7) GERD (gastroesophageal reflux disease) Status: Chronic - AMA Did Patient Leave Against Medical Advice: No (F/U with PCP in 1-2 weeks or sooner if warranted)
== END 2017-10-07 10:05 | disposition home or self-care (01) | DRG 896 ==
LOC: YASAS 08:44 → Y3N 13:14
PROVIDERS: ADMIT Internal Medicine; ATTEND Internal Medicine
PROC: HZ2ZZZZ Detoxification Services for Substance Abuse Treatment (ICD-10-PCS; principal; 2017-10-03)
DX: F10.230 Alcohol dependence with withdrawal, uncomplicated (principal); B20 Human immunodeficiency virus [HIV] disease; F14.20 Cocaine dependence, uncomplicated; F17.213 Nicotine dependence, cigarettes, with withdrawal; F32.9 Major depressive disorder, single episode, unspecified; F19.24 Other psychoactive substance dependence with psychoactive substance-induced mood disorder; G47.00 Insomnia, unspecified; K21.9 Gastro-esophageal reflux disease without esophagitis; R82.90 Unspecified abnormal findings in urine; D70.9 Neutropenia, unspecified; Z87.898 Personal history of other specified conditions
CPT/HCPCS: 36415; 80053; 81003; 81015; 85027; 86593; 93005; 93010

== ENCOUNTER 2017-11-14 12:01 | Inpatient (IN) | payer OTHER ==
[2017-11-14 12:53] VITALS: BMI 23.1
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
[2017-11-14] MEDS ORDERED: LOPERAMIDE HCL 2 MG CAPSULE PO PRN (17:06)
[2017-11-14] MEDS ORDERED: ACETAMINOPHEN 325 MG TABLET (FP) PO PRN (17:06)
[2017-11-14] MEDS ORDERED: MENTHOL/PHENOL 1 EACH UD MM PRN (17:06)
[2017-11-14] MEDS ORDERED: MAGNESIUM CITRATE 300 ML BOTTLE PO PRN (17:06)
[2017-11-14] MEDS ORDERED: NICOTINE POLACRILEX 2 MG GUM BUC PRN (17:06)
[2017-11-14] MEDS ORDERED: guaiFENesin/D-METHORPHAN HB 10 ML UNIT-DOSE CUPS PO PRN (17:06)
[2017-11-14] MEDS ORDERED: MAGNESIUM HYDROX 2400MG/30ML ORAL SUSPENSION 30 ML CUP PO PRN (17:06)
[2017-11-14] MEDS: NICOTINE 14 MG/24 HOURS TOPICAL PATCH TD SCH (20:06)
[2017-11-14] MEDS: hydrOXYzine PAMOATE 50 MG CAPSULE (FP) PO PRN (21:52)
[2017-11-14] MEDS: THIAMINE HCL 100 MG TABLET (FP) PO SCH (21:52)
[2017-11-14 23:27] LABS: URINE APPEARANCE CLEAR; URINE BILIRUBIN NEGATIVE (NEGATIVE); URINE BLOOD NEGATIVE (NEGATIVE); URINE COLOR LTYELLOW; URINE GLUCOSE (UA) NEGATIVE (NEGATIVE); URINE KETONE NEGATIVE (NEGATIVE); URINE LEUK ESTERASE NEGATIVE (NEGATIVE); URINE NITRITE NEGATIVE (NEGATIVE); URINE PROTEIN NEGATIVE (NEGATIVE); URINE UROBILINOGEN NEGATIVE mg/dL (0.2-1.0)
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
[2017-11-15] MEDS: NICOTINE 14 MG/24 HOURS TOPICAL PATCH TD SCH (09:51)
[2017-11-15] MEDS: PRENATAL VITAMINS W/ FOLIC ACID TABLET (FP) PO SCH (09:51)
[2017-11-15 10:09] LABS: CHLORIDE 104 mmol/L (98-107); POTASSIUM 4.5 mmol/L (3.5-5.1); SODIUM 137 mmol/L (136-145)
[2017-11-15 10:14] LABS: HEMATOCRIT 36.7 % (35.4-49); HEMOGLOBIN 11.5 GM/dL (11.7-16.9); MCH 26.6 pg (25.7-33.7); MCHC 31.3 g/dl (32.0-35.9); MEAN CELL VOLUME 85.2 fl (80-96); MEAN PLT VOLUME 10.7 fl (7.5-11.1); PLATELET COUNT 208 K/MM3 (134-434); RBC 4.31 M/mm3 (4.00-5.60); WHITE BLOOD COUNT 2.5 K/mm3 (4.0-10.0)
[2017-11-15 10:19] LABS: ALBUMIN 3.9 g/dl (3.4-5.0); ALK PHOS 80 U/L (45-117); ANION GAP 8 (8-16); BILIRUBIN,TOTAL 0.4 mg/dL (0.2-1.0); BLOOD UREA NITROGEN 21 mg/dL (7-18); CALCIUM 8.6 mg/dL (8.5-10.1); CO2 25 mmol/L (21-32); CREATININE 1.1 mg/dL (0.7-1.3); GLUCOSE,RANDOM 98 mg/dL (74-106); SGOT/AST 16 U/L (15-37); SGPT/ALT 21 U/L (12-78); TOT PROT 9.3 g/dl (6.4-8.2)
[2017-11-15] MEDS: ELVITEG/COB/EMTRI/TENOF (GENVOYA) TABLET (NF) PO SCH (12:44)
--- NOTE | 2017-11-15 14:09 | EKG ---
Test Reason : Blood Pressure : / mmHG Vent. Rate : 087 BPM Atrial Rate : 087 BPM P-R Int : 140 ms QRS Dur : 088 ms QT Int : 346 ms P-R-T Axes : 066 049 047 degrees QTc Int : 416 ms NORMAL SINUS RHYTHM NORMAL ECG WHEN COMPARED WITH ECG OF 03-OCT-2017 15:53, NO SIGNIFICANT CHANGE WAS FOUND Confirmed by MD JESUS, NICOLE ([id number]) on 11/15/2017 2:08:34 PM Referred By: Confirmed By:NICOLE LEE MD
[2017-11-15] MEDS ORDERED: AZITHROMYCIN 600 MG TABLET PO ONE (18:30)
[2017-11-15] MEDS: SULFAMETHOXAZOLE/TRIMETHOPRIM 800MG/160MG D.S. TABLET PO SCH (20:26)
[2017-11-15] MEDS: THIAMINE HCL 100 MG TABLET (FP) PO SCH (22:02)
[2017-11-15] MEDS: SUVOREXANT 10 MG TABLET PO PRN (22:02)
[2017-11-16] MEDS: ELVITEG/COB/EMTRI/TENOF (GENVOYA) TABLET (NF) PO SCH (07:03)
[2017-11-16] MEDS: PRENATAL VITAMINS W/ FOLIC ACID TABLET (FP) PO SCH (10:32)
[2017-11-16] MEDS: NICOTINE 14 MG/24 HOURS TOPICAL PATCH TD SCH (10:32)
[2017-11-16] MEDS: SULFAMETHOXAZOLE/TRIMETHOPRIM 800MG/160MG D.S. TABLET PO SCH (10:32)
[2017-11-16] MEDS: THIAMINE HCL 100 MG TABLET (FP) PO SCH (22:17)
[2017-11-16] MEDS: SUVOREXANT 10 MG TABLET PO PRN (22:25)
[2017-11-17] MEDS: ELVITEG/COB/EMTRI/TENOF (GENVOYA) TABLET (NF) PO SCH (07:28)
[2017-11-17] MEDS: SULFAMETHOXAZOLE/TRIMETHOPRIM 800MG/160MG D.S. TABLET PO SCH (10:15)
[2017-11-17] MEDS: PRENATAL VITAMINS W/ FOLIC ACID TABLET (FP) PO SCH (10:15)
[2017-11-17] MEDS: NICOTINE 14 MG/24 HOURS TOPICAL PATCH TD SCH (10:16)
--- NOTE | 2017-11-17 13:36 | PN ---
[facility] Progress Note (SOAP) Subjective: C/O DRY EYES , ITCHY BILATERALLY Objective: 11/17/17 13:34 Vital Signs - 24 hr 11/17/17 11/17/17 11/17/17 00:30 03:30 07:04 Temperature 97.3 F L Pulse Rate 75 Respiratory 16 16 18 Rate Blood Pressure 116/71 Laboratory Tests 11/14/17 11/15/17 11/15/17 Unknown 06:00 06:00 WBC 2.5 L D RBC 4.31 Hgb 11.5 L Hct 36.7 MCV 85.2 MCH 26.6 MCHC 31.3 L RDW 15.0 Plt Count 208 MPV 10.7 Sodium 137 Potassium 4.5 Chloride 104 Carbon Dioxide 25 Anion Gap 8 BUN 21 H D Creatinine 1.1 D Creat Clearance w eGFR > 60 Random Glucose 98 Calcium 8.6 Total Bilirubin 0.4 AST 16 D ALT 21 Alkaline Phosphatase 80 Total Protein 9.3 H Albumin 3.9 D Urine Color Ltyellow Urine Appearance Clear Urine pH 5.0 Ur Specific [place] 1.009 Urine Protein Negative Urine Glucose (UA) Negative Urine Ketones Negative Urine Blood Negative Urine Nitrite Negative Urine Bilirubin Negative Urine Urobilinogen Negative Ur Leukocyte Esterase Negative RPR Titer 11/15/17 06:00 WBC RBC Hgb Hct MCV MCH MCHC RDW Plt Count MPV Sodium Potassium Chloride Carbon Dioxide Anion Gap BUN Creatinine Creat Clearance w eGFR Random Glucose Calcium Total Bilirubin AST ALT Alkaline Phosphatase Total Protein Albumin Urine Color Urine Appearance Urine pH Ur Specific [place] Urine Protein Urine Glucose (UA) Urine Ketones Urine Blood Urine Nitrite Urine Bilirubin Urine Urobilinogen Ur Leukocyte Esterase RPR Titer Nonreactive NO ERYTHEMA OR DISCHARGE NOTED Assessment: 11/17/17 13:35 DRY EYES 2/2 MEDICATION, NO INFECTION START WTIH VISINE, CONSIDER CHROMOLYN IF NO IMPORVEMENT LABS REVEIWED
[2017-11-17] MEDS ORDERED: TETRAHYDROZOLINE HCL 1 DROP DROPS OD SCH (13:45)
[2017-11-17] MEDS: THIAMINE HCL 100 MG TABLET (FP) PO SCH (21:49)
[2017-11-17] MEDS: NAPHAZOLINE/PHENIRAMINE OPHTHALMIC 15 ML BOTTLE OU PRN (21:50)
[2017-11-18] MEDS: ELVITEG/COB/EMTRI/TENOF (GENVOYA) TABLET (NF) PO SCH (07:36)
[2017-11-18] MEDS: SULFAMETHOXAZOLE/TRIMETHOPRIM 800MG/160MG D.S. TABLET PO SCH (09:58)
[2017-11-18] MEDS: PRENATAL VITAMINS W/ FOLIC ACID TABLET (FP) PO SCH (09:58)
[2017-11-18] MEDS: NICOTINE 14 MG/24 HOURS TOPICAL PATCH TD SCH (09:58)
[2017-11-18] MEDS: IBUPROFEN 400 MG TABLET (FP) PO PRN (12:58)
[2017-11-18] MEDS: THIAMINE HCL 100 MG TABLET (FP) PO SCH (22:00)
[2017-11-18] MEDS: SUVOREXANT 10 MG TABLET PO PRN (22:01)
[2017-11-19] MEDS: ELVITEG/COB/EMTRI/TENOF (GENVOYA) TABLET (NF) PO SCH (07:20)
[2017-11-19] MEDS: PRENATAL VITAMINS W/ FOLIC ACID TABLET (FP) PO SCH (10:07)
[2017-11-19] MEDS: SULFAMETHOXAZOLE/TRIMETHOPRIM 800MG/160MG D.S. TABLET PO SCH (10:07)
[2017-11-19] MEDS: MAG HYDROX/AL HYDROX/SIMETH 30 ML UNIT-DOSE CUP PO PRN (10:07)
[2017-11-19] MEDS: NICOTINE 14 MG/24 HOURS TOPICAL PATCH TD SCH (10:07)
[2017-11-19] MEDS: THIAMINE HCL 100 MG TABLET (FP) PO SCH (21:39)
[2017-11-19] MEDS: SUVOREXANT 10 MG TABLET PO PRN (21:39)
[2017-11-20] MEDS: ELVITEG/COB/EMTRI/TENOF (GENVOYA) TABLET (NF) PO SCH (07:37)
[2017-11-20] MEDS: MAG HYDROX/AL HYDROX/SIMETH 30 ML UNIT-DOSE CUP PO PRN (07:39)
[2017-11-20] MEDS: NICOTINE 14 MG/24 HOURS TOPICAL PATCH TD SCH (10:06)
[2017-11-20] MEDS: PRENATAL VITAMINS W/ FOLIC ACID TABLET (FP) PO SCH (10:06)
[2017-11-20] MEDS: SULFAMETHOXAZOLE/TRIMETHOPRIM 800MG/160MG D.S. TABLET PO SCH (10:06)
[2017-11-20] MEDS: NAPHAZOLINE/PHENIRAMINE OPHTHALMIC 15 ML BOTTLE OU PRN ×2 (17:05→21:52)
[2017-11-20] MEDS: SUVOREXANT 10 MG TABLET PO PRN (21:53)
[2017-11-20] MEDS: hydrOXYzine PAMOATE 50 MG CAPSULE (FP) PO PRN (21:53)
[2017-11-20] MEDS: THIAMINE HCL 100 MG TABLET (FP) PO SCH (21:53)
[2017-11-21] MEDS: ELVITEG/COB/EMTRI/TENOF (GENVOYA) TABLET (NF) PO SCH (07:22)
[2017-11-21] MEDS: SULFAMETHOXAZOLE/TRIMETHOPRIM 800MG/160MG D.S. TABLET PO SCH (09:57)
[2017-11-21] MEDS: NICOTINE 14 MG/24 HOURS TOPICAL PATCH TD SCH (09:57)
[2017-11-21] MEDS: PRENATAL VITAMINS W/ FOLIC ACID TABLET (FP) PO SCH (09:57)
--- NOTE | 2017-11-21 16:20 | PN ---
[facility] Progress Note Note: pt c/o dry skin itchy and red assess skin; redness noted benadry 50mg x one dose ordered now and 25mg q6hrs prn aveeno soap lidex cream
[2017-11-21] MEDS: FLUOCINONIDE 0.05% CREAM (15 GM TUBE) TP SCH ×2 (18:00→21:51)
[2017-11-21] MEDS ORDERED: diphenhydrAMINE HCL 25 MG CAPSULE (FP) PO ONE (18:15)
[2017-11-21] MEDS: THIAMINE HCL 100 MG TABLET (FP) PO SCH (21:49)
[2017-11-21] MEDS: SUVOREXANT 10 MG TABLET PO PRN (21:49)
[2017-11-22] MEDS: ELVITEG/COB/EMTRI/TENOF (GENVOYA) TABLET (NF) PO SCH (07:29)
[2017-11-22] MEDS: COLLOIDAL OATMEAL 1 BAR EACH TP PRN (08:39)
[2017-11-22] MEDS: NICOTINE 14 MG/24 HOURS TOPICAL PATCH TD SCH (10:02)
[2017-11-22] MEDS: PRENATAL VITAMINS W/ FOLIC ACID TABLET (FP) PO SCH (10:02)
[2017-11-22] MEDS: SULFAMETHOXAZOLE/TRIMETHOPRIM 800MG/160MG D.S. TABLET PO SCH (10:02)
[2017-11-22] MEDS: FLUOCINONIDE 0.05% CREAM (15 GM TUBE) TP SCH ×4 (10:03→22:04)
[2017-11-22] MEDS: MAG HYDROX/AL HYDROX/SIMETH 30 ML UNIT-DOSE CUP PO PRN (10:58)
[2017-11-22] MEDS: diphenhydrAMINE HCL 25 MG CAPSULE (FP) PO PRN (17:07)
[2017-11-22] MEDS: THIAMINE HCL 100 MG TABLET (FP) PO SCH (22:04)
[2017-11-23] MEDS: ELVITEG/COB/EMTRI/TENOF (GENVOYA) TABLET (NF) PO SCH (07:12)
[2017-11-23] MEDS: diphenhydrAMINE HCL 25 MG CAPSULE (FP) PO PRN ×3 (07:23→21:38)
[2017-11-23] MEDS: PRENATAL VITAMINS W/ FOLIC ACID TABLET (FP) PO SCH (09:48)
[2017-11-23] MEDS: SULFAMETHOXAZOLE/TRIMETHOPRIM 800MG/160MG D.S. TABLET PO SCH (09:49)
[2017-11-23] MEDS: FLUOCINONIDE 0.05% CREAM (15 GM TUBE) TP SCH ×4 (09:49→21:38)
[2017-11-23] MEDS: NICOTINE 14 MG/24 HOURS TOPICAL PATCH TD SCH (09:49)
[2017-11-23] MEDS: IBUPROFEN 400 MG TABLET (FP) PO PRN (09:51)
[2017-11-23] MEDS: SUVOREXANT 10 MG TABLET PO PRN (21:38)
[2017-11-23] MEDS: THIAMINE HCL 100 MG TABLET (FP) PO SCH (21:38)
[2017-11-24] MEDS: ELVITEG/COB/EMTRI/TENOF (GENVOYA) TABLET (NF) PO SCH (07:12)
[2017-11-24] MEDS: FLUOCINONIDE 0.05% CREAM (15 GM TUBE) TP SCH ×4 (09:56→22:11)
[2017-11-24] MEDS: SULFAMETHOXAZOLE/TRIMETHOPRIM 800MG/160MG D.S. TABLET PO SCH (09:56)
[2017-11-24] MEDS: PRENATAL VITAMINS W/ FOLIC ACID TABLET (FP) PO SCH (09:56)
[2017-11-24] MEDS: NICOTINE 14 MG/24 HOURS TOPICAL PATCH TD SCH (09:56)
[2017-11-24] MEDS ORDERED: PT OWN MED DRAWER 7, Y5N ONE (14:39)
[2017-11-24] MEDS: P-EPHED 60MG/TRIPROLIDI 2.5MG TABLET PO PRN (17:11)
[2017-11-24] MEDS ORDERED: SUVOREXANT 10 MG TABLET PO PRN (22:00)
[2017-11-24] MEDS: THIAMINE HCL 100 MG TABLET (FP) PO SCH (22:10)
[2017-11-24] MEDS: diphenhydrAMINE HCL 25 MG CAPSULE (FP) PO PRN (22:12)
[2017-11-25] MEDS: ELVITEG/COB/EMTRI/TENOF (GENVOYA) TABLET (NF) PO SCH (07:23)
[2017-11-25] MEDS: IBUPROFEN 400 MG TABLET (FP) PO PRN (07:44)
[2017-11-25] MEDS: PRENATAL VITAMINS W/ FOLIC ACID TABLET (FP) PO SCH (09:56)
[2017-11-25] MEDS: SULFAMETHOXAZOLE/TRIMETHOPRIM 800MG/160MG D.S. TABLET PO SCH (09:56)
[2017-11-25] MEDS: NICOTINE 14 MG/24 HOURS TOPICAL PATCH TD SCH (09:56)
[2017-11-25] MEDS ORDERED: PT OWN MED DRAWER 7, Y5N ONE ×4 (09:58→16:30)
[2017-11-25] MEDS: FLUOCINONIDE 0.05% CREAM (15 GM TUBE) TP SCH ×4 (09:58→22:05)
[2017-11-25] MEDS: P-EPHED 60MG/TRIPROLIDI 2.5MG TABLET PO PRN (12:20)
[2017-11-25] MEDS: diphenhydrAMINE HCL 25 MG CAPSULE (FP) PO PRN ×2 (15:52→22:03)
[2017-11-25] MEDS: THIAMINE HCL 100 MG TABLET (FP) PO SCH (22:02)
[2017-11-25] MEDS: NAPROXEN 500 MG TABLET (FP) PO SCH (22:03)
[2017-11-26] MEDS: ELVITEG/COB/EMTRI/TENOF (GENVOYA) TABLET (NF) PO SCH (07:59)
[2017-11-26] MEDS ORDERED: PT OWN MED DRAWER 7, Y5N ONE ×2 (08:59→20:15)
[2017-11-26] MEDS: SULFAMETHOXAZOLE/TRIMETHOPRIM 800MG/160MG D.S. TABLET PO SCH (10:03)
[2017-11-26] MEDS: PANTOPRAZOLE 40 MG TABLET (FP) PO SCH (10:03)
[2017-11-26] MEDS: PRENATAL VITAMINS W/ FOLIC ACID TABLET (FP) PO SCH (10:03)
[2017-11-26] MEDS: NAPROXEN 500 MG TABLET (FP) PO SCH ×2 (10:03→21:59)
[2017-11-26] MEDS: NICOTINE 14 MG/24 HOURS TOPICAL PATCH TD SCH (10:04)
[2017-11-26] MEDS: FLUOCINONIDE 0.05% CREAM (15 GM TUBE) TP SCH ×4 (10:05→22:00)
[2017-11-26] MEDS: P-EPHED 60MG/TRIPROLIDI 2.5MG TABLET PO PRN (20:13)
[2017-11-26] MEDS: THIAMINE HCL 100 MG TABLET (FP) PO SCH (21:59)
[2017-11-27] MEDS: ELVITEG/COB/EMTRI/TENOF (GENVOYA) TABLET (NF) PO SCH (07:02)
[2017-11-27] MEDS ORDERED: PT OWN MED DRAWER 7, Y5N ONE ×2 (08:44→19:20)
[2017-11-27] MEDS: PRENATAL VITAMINS W/ FOLIC ACID TABLET (FP) PO SCH (09:55)
[2017-11-27] MEDS: NAPROXEN 500 MG TABLET (FP) PO SCH ×2 (09:55→22:12)
[2017-11-27] MEDS: PANTOPRAZOLE 40 MG TABLET (FP) PO SCH (09:55)
[2017-11-27] MEDS: SULFAMETHOXAZOLE/TRIMETHOPRIM 800MG/160MG D.S. TABLET PO SCH (09:55)
[2017-11-27] MEDS: FLUOCINONIDE 0.05% CREAM (15 GM TUBE) TP SCH ×4 (09:56→22:12)
[2017-11-27] MEDS: NICOTINE 14 MG/24 HOURS TOPICAL PATCH TD SCH (09:56)
--- NOTE | 2017-11-27 12:48 | PN ---
Psychiatric Progress Note Vital Signs: Vital Signs Period Temp Pulse Resp BP Sys/Kelly Pulse Ox Last 24 Hr 97.4 F 83 16-18 108/68 Date of Session: 11/27/17 Chief Complaint:: Discharge Note HPI: Patient addressing Alcohol and Cocaine Dependence comorbid with Nicotine Dependence and Substance-induced Sleep Disorder Current Medications: Active Medications Generic Name Dose Route Start Last Admin Trade Name Freq PRN Reason Stop Dose Admin Acetaminophen 650 mg 11/14/17 17:06 11/24/17 12:58 Tylenol - PO 650 mg Q4H PRN Administration FEVER Al Hydroxide/Mg Hydroxide 30 ml 11/14/17 17:06 11/22/17 10:58 Mylanta Oral Suspension - PO 30 ml Q6H PRN Administration DYSPEPSIA Colloidal Oatmeal 1 applic 11/21/17 17:14 11/22/17 08:39 Aveeno Soap - TP 1 applic DAILY PRN Administration HYGEINE Diphenhydramine HCl 25 mg 11/21/17 18:04 11/25/17 22:03 Benadryl - PO 25 mg Q6H PRN Administration FOR ITCHING Elvitegravir/Cobicis/Emtricit/Tenof 1 tab 11/15/17 12:00 11/27/17 07:02 Genvoya (Non-Formulary) PO 1 tab DAILY@0800 JORGE Administration Eucalyptus/Menthol/Phenol/Sorbitol 1 each 11/14/17 17:06 Cepastat Lozenge - MM Q4H PRN SORE THROAT Fluocinonide 1 applic 11/21/17 18:00 11/27/17 09:56 Lidex 0.05% Cream - TP 1 applic QID JORGE Administration Guaifenesin 10 ml 11/14/17 17:06 Robitussin Dm - PO Q6H PRN COUGH Hydroxyzine Pamoate 50 mg 11/14/17 17:06 11/20/17 21:53 Vistaril - PO 50 mg Q4H PRN Administration AGITATION Loperamide HCl 4 mg 11/14/17 17:06 Imodium - PO Q6H PRN DIARRHEA Magnesium Citrate 300 ml 11/14/17 17:06 Citroma - PO Q48H PRN CONSTIPATION Magnesium Hydroxide 30 ml 11/14/17 17:06 Milk Of Magnesia - PO DAILY PRN CONSTIPATION Naphazoline HCl/Pheniramine Maleate 2 drop 11/17/17 14:40 11/20/17 21:52 Visine-A - OU 2 drop QID PRN Administration DRY EYES Naproxen 500 mg 11/25/17 22:00 11/27/17 09:55 Naprosyn - PO 500 mg BID JORGE Administration Nicotine 14 mg 11/14/17 17:15 11/27/17 09:56 Nicoderm Patch - TD Not Given DAILY JORGE Nicotine Polacrilex 2 mg 11/14/17 17:06 Nicorette Gum - BUC Q2H PRN NICOTINE REPLACEMENT RX Pantoprazole Sodium 40 mg 11/26/17 10:00 11/27/17 09:55 Protonix - PO 40 mg DAILY JORGE Administration Multivit/Folic Acid/Iron 1 tab 11/15/17 10:00 11/27/17 09:55 Vitamins (Sjr) - PO 1 tab DAILY JORGE Administration Pseudoephedrine/Triprolidine 1 combo 11/14/17 17:06 11/26/17 20:13 Actifed - PO 1 combo TID PRN Administration NASAL CONGESTION Thiamine HCl 100 mg 11/14/17 22:00 11/26/17 21:59 Vitamin B1 - PO 100 mg HS JORGE Administration Trimethoprim/Sulfamethoxazole 1 each 11/15/17 15:30 11/27/17 09:55 Bactrim Ds - PO 1 each DAILY JORGE Administration Current Side Effect: No Lab tests ordered: Yes Lab tests reviewed: Yes Provider note:: Patient will complete this program on 11/28/17. He has met his treatment goals and will continue to address his issues in outpatient treatment at [facility]. 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 He responded well to [facility] for insomnia. He is stable for discharge on 11/28/17 Total face to face time:: 35 Mental Status Exam - Mental Status Exam Alert and Oriented to: Time, Place, Person Cognitive Function: Fair Mood: Hopeful, Euthymic Affect: Blunted Patient Behavior: Cooperative Speech Pattern: Clear Voice Loudness: Normal Thought Process: Intact, Goal Oriented Thought Disorder: Not Present Hallucinations: Denies Suicidal Ideation: Denies Homicidal Ideation: Denies Insight/Judgement: Fair Sleep: Fair Appetite: Good Muscle strength/Tone: Normal Gait/Station: Normal Psychiatric Treatment Plan - Problem List (1) Alcohol dependence Current Visit: Yes (2) Cocaine dependence Current Visit: Yes (3) Nicotine dependence Current Visit: Yes Qualifiers: Nicotine product type: cigarettes Substance use status: in withdrawal Qualified Code(s): F17.213 - Nicotine dependence, cigarettes, with withdrawal (4) Substance-induced sleep disorder Current Visit: Yes (5) Acquired immune deficiency syndrome (AIDS) Current Visit: Yes Comment: PT STATES HE IS ON GENVOYA (6) GERD (gastroesophageal reflux disease) Current Visit: Yes Qualifiers: Esophagitis presence: esophagitis presence not specified Qualified Code(s) : K21.9 - Gastro-esophageal reflux disease without esophagitis Initial treatment plan: Patient will be discharged tomorrow and referred to [facility] for outpatient treatment
[2017-11-27] MEDS: P-EPHED 60MG/TRIPROLIDI 2.5MG TABLET PO PRN (13:00)
[2017-11-27] MEDS ORDERED: SUVOREXANT 10 MG TABLET PO PRN (22:00)
[2017-11-27] MEDS: THIAMINE HCL 100 MG TABLET (FP) PO SCH (22:12)
[2017-11-27] MEDS: COLLOIDAL OATMEAL 1 BAR EACH TP PRN (22:18)
[2017-11-28 07:04] VITALS: BP 111/69; PULSE 79; TEMP 98.2
[2017-11-28] MEDS: ELVITEG/COB/EMTRI/TENOF (GENVOYA) TABLET (NF) PO SCH (07:16)
[2017-11-28] MEDS ORDERED: PT OWN MED DRAWER 7, Y5N ONE ×2 (08:20→08:53)
[2017-11-28] MEDS: FLUOCINONIDE 0.05% CREAM (15 GM TUBE) TP SCH (09:20)
[2017-11-28] MEDS: NAPROXEN 500 MG TABLET (FP) PO SCH (09:20)
[2017-11-28] MEDS: NICOTINE 14 MG/24 HOURS TOPICAL PATCH TD SCH (09:20)
[2017-11-28] MEDS: SULFAMETHOXAZOLE/TRIMETHOPRIM 800MG/160MG D.S. TABLET PO SCH (09:20)
[2017-11-28] MEDS: PRENATAL VITAMINS W/ FOLIC ACID TABLET (FP) PO SCH (09:20)
== END 2017-11-28 08:57 | disposition home or self-care (01) | DRG 895 ==
LOC: YASAS 12:01 → Y3W 17:51
PROVIDERS: ADMIT Psychiatry & Neurology Psychiatry; ATTEND Psychiatry & Neurology Psychiatry
PROC: HZ42ZZZ Group Counseling for Substance Abuse Treatment, Cognitive-Behavioral (ICD-10-PCS; principal; 2017-11-14)
DX: F10.20 Alcohol dependence, uncomplicated (principal); B20 Human immunodeficiency virus [HIV] disease; F14.20 Cocaine dependence, uncomplicated; F19.282 Other psychoactive substance dependence with psychoactive substance-induced sleep disorder; F17.213 Nicotine dependence, cigarettes, with withdrawal; K21.9 Gastro-esophageal reflux disease without esophagitis; H04.123 Dry eye syndrome of bilateral lacrimal glands; Z87.898 Personal history of other specified conditions
CPT/HCPCS: 36415; 80053; 81003; 85027; 86593; 93005; 93010

== ENCOUNTER 2019-03-13 18:32 | Inpatient (IN) | payer OTHER ==
[2019-03-14 09:31] VITALS: BMI 22.0
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
[2019-03-14] MEDS ORDERED: chlordiazePOXIDE HCL 25 MG CAPSULE PO PRN (11:01)
[2019-03-14] MEDS ORDERED: MAG HYDROX/AL HYDROX/SIMETH 30 ML UNIT-DOSE CUP PO PRN (11:02)
[2019-03-14] MEDS ORDERED: ACETAMINOPHEN 325 MG TABLET (FP) PO PRN ×2 (11:02)
[2019-03-14] MEDS ORDERED: BISMUTH SUBSALICYLATE 262 MG/15 ML BTL PO PRN (11:02)
[2019-03-14] MEDS ORDERED: MAGNESIUM CITRATE 300 ML BOTTLE PO PRN (11:02)
[2019-03-14] MEDS ORDERED: IBUPROFEN 400 MG TABLET (FP) PO PRN (11:02)
[2019-03-14] MEDS ORDERED: NICOTINE POLACRILEX 2 MG GUM BUC PRN (11:02)
[2019-03-14] MEDS ORDERED: MENTHOL/PHENOL 1 EACH UD MM PRN (11:02)
[2019-03-14] MEDS ORDERED: MAGNESIUM HYDROX 2400MG/30ML ORAL SUSPENSION 30 ML CUP PO PRN (11:02)
[2019-03-14] MEDS ORDERED: METHOCARBAMOL 500 MG TABLET PO PRN (11:02)
[2019-03-14] MEDS ORDERED: hydrOXYzine PAMOATE 25 MG CAPSULE (FP) PO PRN (11:02)
[2019-03-14] MEDS: chlordiazePOXIDE HCL 25 MG CAPSULE PO SCH ×2 (17:34→22:25)
[2019-03-14] MEDS: THIAMINE HCL 100 MG TABLET (FP) PO SCH (22:26)
[2019-03-14] MEDS: MELATONIN 5 MG TABLETS PO PRN (22:26)
[2019-03-15] MEDS: chlordiazePOXIDE HCL 25 MG CAPSULE PO SCH ×2 (06:15→10:46)
[2019-03-15] MEDS ORDERED: PRENATAL VITAMINS W/ FOLIC ACID TABLET (FP) PO SCH (10:00)
[2019-03-15 10:16] LABS: ALBUMIN 3.1 g/dl (3.4-5.0); BILIRUBIN,TOTAL 0.2 mg/dL (0.2-1); CALCIUM 8.4 mg/dL (8.5-10.1); CREATININE 0.9 mg/dL (0.55-1.3); POTASSIUM 3.9 mmol/L (3.5-5.1); TOT PROT 7.1 g/dl (6.4-8.2)
[2019-03-15 10:24] LABS: HEMATOCRIT 34.7 % (35.4-49); HEMOGLOBIN 10.9 GM/dL (11.7-16.9); MCH 25.9 pg (25.7-33.7); MCHC 31.5 g/dl (32.0-35.9); MEAN CELL VOLUME 82.2 fl (80-96); MEAN PLT VOLUME 11.2 fl (7.5-11.1); PLATELET COUNT 162 K/MM3 (134-434); RBC 4.22 M/mm3 (4.00-5.60); RDW 17.2 % (11.9-15.9); WHITE BLOOD COUNT 2.4 K/mm3 (4.0-10.0)
[2019-03-15] MEDS ORDERED: EFAVIRENZ 600 MG TABLET PO SCH (11:00)
--- NOTE | 2019-03-15 11:04 | PN ---
S CIWA - CIWA Score Nausea/Vomitin Muscle Tremors: 2 Anxiety: 2 Agitation: 2 Paroxysmal Sweats: 1-Minimal Palms Moist Orientation: 0-Oriented Tacttile Disturbances: 1-Very Mild Itch/Numbness Auditory Disturbances: 1-Very Mild Visual Disturbances: 0-None Headache: 1-Very Mild CIWA-Ar Total Score: 12 BHS Progress Note (SOAP) Subjective: alert,irritable,anxious,interrupted sleep,tremor Objective: 03/15/19 11:04 Vital Signs Temperature 98.1 F 03/15/19 09:54 Pulse Rate 94 H 03/15/19 09:54 Respiratory Rate 18 03/15/19 09:54 Blood Pressure 129/58 L 03/15/19 09:54 O2 Sat by Pulse Oximetry (%) 03/15/19 11:05 Laboratory Last Values WBC 2.4 K/mm3 (4.0-10.0) L 03/15/19 06:00 RBC 4.22 M/mm3 (4.00-5.60) 03/15/19 06:00 Hgb 10.9 GM/dL (11.7-16.9) L 03/15/19 06:00 Hct 34.7 % (35.4-49) L 03/15/19 06:00 MCV 82.2 fl (80-96) 03/15/19 06:00 MCH 25.9 pg (25.7-33.7) 03/15/19 06:00 MCHC 31.5 g/dl (32.0-35.9) L 03/15/19 06:00 RDW 17.2 % (11.9-15.9) H 03/15/19 06:00 Plt Count 162 K/MM3 (134-434) D 03/15/19 06:00 MPV 11.2 fl (7.5-11.1) H 03/15/19 06:00 Sodium 143 mmol/L (136-145) 03/15/19 06:00 Potassium 3.9 mmol/L (3.5-5.1) 03/15/19 06:00 Chloride 110 mmol/L (98-107) H 03/15/19 06:00 Carbon Dioxide 30 mmol/L (21-32) 03/15/19 06:00 Anion Gap 3 MMOL/L (8-16) L 03/15/19 06:00 BUN 13 mg/dL (7-18) 03/15/19 06:00 Creatinine 0.9 mg/dL (0.55-1.3) 03/15/19 06:00 Est GFR (CKD-EPI)AfAm 114.21 03/15/19 06:00 Est GFR (CKD-EPI)NonAf 98.54 03/15/19 06:00 Random Glucose 84 mg/dL (74-106) 03/15/19 06:00 Calcium 8.4 mg/dL (8.5-10.1) L 03/15/19 06:00 Total Bilirubin 0.2 mg/dL (0.2-1) 03/15/19 06:00 AST 16 U/L (15-37) 03/15/19 06:00 ALT 19 U/L (13-61) 03/15/19 06:00 Alkaline Phosphatase 76 U/L (45-117) 03/15/19 06:00 Total Protein 7.1 g/dl (6.4-8.2) 03/15/19 06:00 Albumin 3.1 g/dl (3.4-5.0) L 03/15/19 06:00 03/15/19 11:05 leucopenia wbc 2.4 probably secodary to hiv and alcoholism Assessment: 03/15/19 11:07 withdrawal symptom Plan: continue detox,patient stated he has been on atripla,,and would like to be on now,truvada and sustiva ordered
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
[2019-03-15] MEDS ORDERED: EMTRICITABINE 200MG/TENOFOVIR 300MG PO SCH (11:35)
--- NOTE | 2019-03-15 12:19 | PN ---
S Progress Note Note: patient stated librium did not work for him,would like regiment to change to valium instead of librium,regimen changed to comply with patient request
[2019-03-15] MEDS ORDERED: diazePAM 5 MG TABLET PO PRN (12:20)
[2019-03-15] MEDS: diazePAM 5 MG TABLET PO SCH ×2 (13:49→22:55)
[2019-03-15] MEDS ORDERED: BACITRACIN 0.9 GM PACKET TP ONE (15:14)
[2019-03-15] MEDS ORDERED: chlordiazePOXIDE HCL 25 MG CAPSULE PO SCH (17:00)
[2019-03-15] MEDS: THIAMINE HCL 100 MG TABLET (FP) PO SCH (22:54)
[2019-03-15] MEDS: MELATONIN 5 MG TABLETS PO PRN (22:55)
[2019-03-16 06:39] VITALS: BP 123/81; PULSE 81; TEMP 97.7
[2019-03-16] MEDS: diazePAM 5 MG TABLET PO SCH (06:45)
--- NOTE | 2019-03-16 08:41 | PN ---
BHS CIWA - CIWA Score Nausea/Vomitin Muscle Tremors: 2 Anxiety: 2 Agitation: 2 Paroxysmal Sweats: No Perspiration Orientation: 0-Oriented Tacttile Disturbances: 1-Very Mild Itch/Numbness Auditory Disturbances: 1-Very Mild Visual Disturbances: 0-None Headache: 2-Mild CIWA-Ar Total Score: 12 [facility] Progress Note (SOAP) Subjective: alert,irritable,anxious,interrupted sleep Objective: 03/16/19 08:40 Vital Signs Temperature 97.7 F 03/16/19 06:38 Pulse Rate 81 03/16/19 06:38 Respiratory Rate 18 03/16/19 06:38 Blood Pressure 123/81 03/16/19 06:38 O2 Sat by Pulse Oximetry (%) Assessment: 03/16/19 08:40 withdrawal symptom Plan: continue detox
--- NOTE | 2019-03-16 08:46 | PN ---
[facility] Progress Note Note: patient did not want to complete treatment,all attempts to convince patient to stay with no avail, the high risk of relapsing explain,patient understood,seen by counselor,patient stated that he will see his medical provider on 03/30/19 for follow up medical care,advise to call 911 for emergency medical problem. patient signed release ama
--- NOTE | 2019-03-16 08:54 | DS ---
[facility] Detox Discharge Summary Admission Date: 03/14/19 Discharge Date: 03/16/19 - History Present History: Alcohol Dependence, Cannabis Dependence Additional Comments: patient left ama,will follow up with his medical provider on 03/20/19 and for medication Pertinent Past History: hiv weight loss epigastric hernia insomnia anxiety,depression - Physical Exam Results Vital Signs: Vital Signs Temperature 97.7 F 03/16/19 06:38 Pulse Rate 81 03/16/19 06:38 Respiratory Rate 18 03/16/19 06:38 Blood Pressure 123/81 03/16/19 06:38 O2 Sat by Pulse Oximetry (%) Pertinent Admission Physical Exam Findings: withdrawal signs and symptom Vital Signs Temperature 97.7 F 03/16/19 06:38 Pulse Rate 81 03/16/19 06:38 Respiratory Rate 18 03/16/19 06:38 Blood Pressure 123/81 03/16/19 06:38 O2 Sat by Pulse Oximetry (%) Laboratory Last Values WBC 2.4 K/mm3 (4.0-10.0) L 03/15/19 06:00 RBC 4.22 M/mm3 (4.00-5.60) 03/15/19 06:00 Hgb 10.9 GM/dL (11.7-16.9) L 03/15/19 06:00 Hct 34.7 % (35.4-49) L 03/15/19 06:00 MCV 82.2 fl (80-96) 03/15/19 06:00 MCH 25.9 pg (25.7-33.7) 03/15/19 06:00 MCHC 31.5 g/dl (32.0-35.9) L 03/15/19 06:00 RDW 17.2 % (11.9-15.9) H 03/15/19 06:00 Plt Count 162 K/MM3 (134-434) D 03/15/19 06:00 MPV 11.2 fl (7.5-11.1) H 03/15/19 06:00 Sodium 143 mmol/L (136-145) 03/15/19 06:00 Potassium 3.9 mmol/L (3.5-5.1) 03/15/19 06:00 Chloride 110 mmol/L (98-107) H 03/15/19 06:00 Carbon Dioxide 30 mmol/L (21-32) 03/15/19 06:00 Anion Gap 3 MMOL/L (8-16) L 03/15/19 06:00 BUN 13 mg/dL (7-18) 03/15/19 06:00 Creatinine 0.9 mg/dL (0.55-1.3) 03/15/19 06:00 Est GFR (CKD-EPI)AfAm 114.21 03/15/19 06:00 Est GFR (CKD-EPI)NonAf 98.54 03/15/19 06:00 Random Glucose 84 mg/dL (74-106) 03/15/19 06:00 Calcium 8.4 mg/dL (8.5-10.1) L 03/15/19 06:00 Total Bilirubin 0.2 mg/dL (0.2-1) 03/15/19 06:00 AST 16 U/L (15-37) 03/15/19 06:00 ALT 19 U/L (13-61) 03/15/19 06:00 Alkaline Phosphatase 76 U/L (45-117) 03/15/19 06:00 Total Protein 7.1 g/dl (6.4-8.2) 03/15/19 06:00 Albumin 3.1 g/dl (3.4-5.0) L 03/15/19 06:00 RPR Titer Nonreactive (NONREACTIVE) 03/15/19 06:00 - Medication Discharge Medications: Ambulatory Orders Darunavir/Cobicistat [Prezcobix 800 mg-150 mg Tablet] 1 each PO DAILY 03/14/19 - Diagnosis (1) Alcohol dependence with uncomplicated withdrawal Current Visit: Yes Status: Acute (2) Cannabis dependence Current Visit: Yes Status: Acute (3) HIV (human immunodeficiency virus infection) Current Visit: Yes Status: Chronic (4) Dehydration Current Visit: Yes Status: Acute (5) Nicotine dependence Current Visit: Yes Status: Chronic (6) Nicotine dependence Current Visit: No Status: Chronic Qualifiers: Nicotine product type: cigarettes Substance use status: in withdrawal Qualified Code(s): F17.213 - Nicotine dependence, cigarettes, with withdrawal (7) Weight decreased Current Visit: No Status: Chronic (8) Epigastric hernia Current Visit: Yes Status: Resolved (9) Insomnia secondary to depression with anxiety Current Visit: Yes Status: Acute - AMA Did Patient Leave Against Medical Advice: Yes
--- NOTE | 2019-03-16 09:01 | PN ---
S Progress Note Note: addendum correction of note on 03/16/19 8.41 am patient has appointment to see his medical provider on 03/20/19 not 03/30/19
[2019-03-16] MEDS ORDERED: diazePAM 5 MG TABLET PO SCH (14:00)
[2019-03-16] MEDS ORDERED: chlordiazePOXIDE HCL 10 MG CAPSULE PO PRN (17:00)
[2019-03-16] MEDS ORDERED: chlordiazePOXIDE HCL 10 MG CAPSULE PO SCH (17:00)
[2019-03-17] MEDS ORDERED: diazePAM 5 MG TABLET PO ONE (06:00)
[2019-03-17] MEDS ORDERED: chlordiazePOXIDE HCL 10 MG CAPSULE PO SCH (17:00)
== END 2019-03-16 08:51 | disposition left against medical advice (07) | DRG 894 ==
LOC: YASAS 18:32 → Y6N 03-14 08:30 → UNDOADMIN 03-14 08:30 → Y6N 03-14 11:23
PROVIDERS: ADMIT Surgery; ATTEND Surgery
PROC: HZ2ZZZZ Detoxification Services for Substance Abuse Treatment (ICD-10-PCS; principal; 2019-03-14)
DX: F10.230 Alcohol dependence with withdrawal, uncomplicated (principal); F19.282 Other psychoactive substance dependence with psychoactive substance-induced sleep disorder; B20 Human immunodeficiency virus [HIV] disease; F12.20 Cannabis dependence, uncomplicated; F17.213 Nicotine dependence, cigarettes, with withdrawal; E86.0 Dehydration; R63.4 Abnormal weight loss; K21.9 Gastro-esophageal reflux disease without esophagitis; D72.819 Decreased white blood cell count, unspecified
CPT/HCPCS: 36415; 80053; 85027; 86593

== ENCOUNTER 2019-03-20 17:07 | Inpatient (IN) | payer OTHER | END 2019-03-23 11:20 | disposition left against medical advice (07) | LOC: YASAS 17:07 → Y5N 22:09 ==